=== PATIENT | male | born 1965 | race Caucasian/White ===

== ENCOUNTER 2018-10-07 16:43 | Emergency (ER) | payer BC, OTHER ==
[2018-10-07 16:50] VITALS: RESP 18
--- NOTE | 2018-10-07 17:32 | XR ---
EXAMINATION TYPE: XR elbow complete RT DATE OF EXAM: 10/07/2018 COMPARISON: NONE HISTORY: Laceration TECHNIQUE: 3 views FINDINGS: There is spurring on the olecranon process. There is spurring on the coronoid process of th e ulna. There is spurring on the radial head. I see no fracture nor dislocation. There is no sign of a foreign body. There is no sign of joint effusion. IMPRESSION: Hypertrophic osteoarthritis. No fracture seen.
[2018-10-07] MEDS ORDERED: LIDOCAINE 1% INJ 10MG/ML (20 ML MDV) SQ STA (17:42)
[2018-10-07] MEDS ORDERED: DIPH,PERTUS(ACELL)TETVAC-LF 0.5 ML VIAL IM ONE (17:51)
--- NOTE | 2018-10-07 18:20 | ED ---
General Adult HPI - General Chief complaint: Extremity Injury, Upper Stated complaint: Right Elbow Laceration Time Seen by Provider: 10/07/18 17:03 Source: patient, RN notes reviewed, old records reviewed Mode of arrival: ambulatory Limitations: no limitations - History of Present Illness Initial comments: 52-year-old male patient presents ED chief complaint of laceration to right elbow. Patient reports that he was moving glass to work, when she rested arm on a table noted glass cutting his right elbow. Patient reports that he has not had a last tetanus. Slight range of motion of joints, denies any other complaints at this time. Systemic: Pt denies fatigue, fever/chills, rash. Pt denies weakness, night sweats, weight loss. Neuro: Pt denies headache, visual disturbances, syncope or pre-syncope. HEENT: Pt denies ocular discharge or irritation, otalgia, rhinorrhea, pharyngitis or notable lymphadenopathy. Cardiopulmonary: Pt denies chest pain, SOB, heart palpitations, dyspnea on exertion. Abdominal/GI: Pt denies abdominal pain, n/v/d. : Pt denies dysuria, burning w/ urination, frequency/urgency. Denies new onset urinary or bowel incontinence. MSK: Pt denies myalgia, loss of strength or function in extremities. Neuro: Pt denies new onset weakness, paresthesias. - Related Data Allergies Allergy/AdvReac Type Severity Reaction Status Date / Time No Known Allergies Allergy Verified 10/07/18 16:50 Review of Systems ROS Statement: Those systems with pertinent positive or pertinent negative responses have been documented in the HPI. ROS Other: All systems not noted in ROS Statement are negative. 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 HEENT: NC/AT, trachea midline, neck supple, no lymphadenopathy. Posterior pharynx non erythematous, without exudates. External ears appear normal, without discharge. Mucous membranes moist. Eyes PERRLA, EOM intact. There is no scleral icterus. No pallor noted. Cardiopulmonary: RRR, no murmurs, rubs or gallops, no JVD noted. Lungs CTAB in anterior and posterior wood. No peripheral edema. Abdominal exam: Abdomen soft and non-distended. Abdomen non-tender to palpation in all 4 quadrants. Bowel sounds active in LLQ. No hepatosplenomegaly. No ecchymosis Neuro: CN II-XII grossly intact. No nuchal rigidity. No raccon eyes, no brito sign, no hemotympanum. No cervical spinal tenderness. MSK: 4 cm laceration, there is irrigated with normal saline, approximated with 5 simple interrupted sutures., Bony, ligamentous involvement. No posterior calf tenderness bilaterally, homans sign negative bilaterally. Posterior tibialis and radial pulse +2 bilaterally. Sensation intact in upper and lower extremities. Full active ROM in upper and lower extremities, 5/5 stregnth. Limitations: no limitations Course Vital Signs 10/07/18 16:48 Temperature 98.0 F Pulse Rate 74 Respiratory 18 Rate Blood Pressure 165/99 O2 Sat by Pulse 98 Oximetry Procedures - Laceration Laceration #1 Consent Obtained: verbal consent Indication: laceration Site: other (R elbow) Size (cm): 4 Description: linear Depth: simple, single layer Anesthetic Used: lidocaine 1% Anesthesia Technique: local infiltration Amount (mls): 4 Pre-repair: wound explored, irrigated extensively Type of Sutures: nylon Size of Sutures: 5-0 Number of Sutures: 5 Technique: simple, interrupted Patient Tolerated Procedure: well, no complications Medical Decision Making - Medical Decision Making 52-year-old male patient with chief complaint laceration to right elbow. Afebrile signs stable, afebrile. 4 cm laceration irrigated, approximated with 5 simple interrupted sutures. Patient tired procedure well. Tetanus updated. Full active range of motion motion of joints. No bony ligamentous involvement. Return precautions discussed. Case discussed with Dr. Coto. Disposition Clinical Impression: Laceration Disposition: HOME SELF-CARE Condition: Stable Instructions (If sedation given, give patient instructions): Laceration (ED) Additional Instructions: Patient to adhere to previously discussed treatment plan and will take medication(s) as directed. Patient to follow up with PCP in 1-2 days. Patient to return to ED if symptoms do not improve. Please return for suture removal: Hand: 7-10 days Face: 5 days Chest/abdomen: 12-14 days Extremities: 7-10 days Scalp: 7 days Eyebrow: 5-7 days Foot/sole: 12-14 days Please monitor for signs and symptoms of infection including: redness, warmth, drainage, discharge. Please return to ED if these signs or symptoms occur, new signs or symptoms develop or if condition worsens in anyway. Is patient prescribed a controlled substance at d/c from ED?: No Referrals: Adriano Mcdowell DO [Primary Care Provider] - 1-2 days
[2018-10-07 18:37] VITALS: BP 152/96; PULSE 65; TEMP 98.7
== END 2018-10-07 18:38 | disposition home or self-care (01) ==
LOC: EC 16:43
DX: S51.011A Laceration without foreign body of right elbow, initial encounter (principal); F17.200 Nicotine dependence, unspecified, uncomplicated; Z23 Encounter for immunization; W25.XXXA Contact with sharp glass, initial encounter; Y93.89 Activity, other specified
CPT/HCPCS: 73080; 90715; 99283; 12002; 90471; J2001